=== PATIENT | female | born 1970 ===

== ENCOUNTER 2024-01-12 11:19 | Outpatient (RCR) | payer OTHER, SELFPAY | END 2024-01-12 23:59 | disposition home or self-care (01) | LOC: RPT 11:19 | PROVIDERS: ATTENDING PHYSICIAN Surgery; FAMILY PHYSICIAN Internal Medicine | DX: M62.89 Other specified disorders of muscle (principal); R15.9 Full incontinence of feces; R15.2 Fecal urgency; N39.3 Stress incontinence (female) (male); Z73.6 Limitation of activities due to disability; Z85.048 Personal history of other malignant neoplasm of rectum, rectosigmoid junction, and anus | CPT/HCPCS: 97163; 97530 ==

== ENCOUNTER 2024-02-09 12:00 | Outpatient (RCR) | payer OTHER, SELFPAY | END 2024-02-09 23:59 | disposition home or self-care (01) | LOC: RPT 12:00 | PROVIDERS: ATTENDING PHYSICIAN Surgery; FAMILY PHYSICIAN Internal Medicine | DX: M62.89 Other specified disorders of muscle (principal); R15.9 Full incontinence of feces; R15.2 Fecal urgency; N39.3 Stress incontinence (female) (male); Z73.6 Limitation of activities due to disability; C20 Malignant neoplasm of rectum | CPT/HCPCS: 97112; 97140; 97530 ==

== ENCOUNTER 2024-03-17 13:05 | Outpatient (RCR) | payer OTHER, SELFPAY | END 2024-03-17 23:59 | disposition home or self-care (01) | LOC: RPT 13:05 | PROVIDERS: FAMILY PHYSICIAN Internal Medicine | DX: M62.89 Other specified disorders of muscle (principal); R15.9 Full incontinence of feces; R15.2 Fecal urgency; N39.3 Stress incontinence (female) (male); Z73.6 Limitation of activities due to disability | CPT/HCPCS: 97110; 97140; 97530 ==

== ENCOUNTER 2024-04-19 12:36 | Outpatient (RCR) | payer OTHER, SELFPAY | END 2024-04-19 23:59 | disposition home or self-care (01) | LOC: RPT 12:36 | PROVIDERS: FAMILY PHYSICIAN Internal Medicine | DX: M62.89 Other specified disorders of muscle (principal); R15.9 Full incontinence of feces; R15.2 Fecal urgency; N39.3 Stress incontinence (female) (male); Z73.6 Limitation of activities due to disability | CPT/HCPCS: 97014; 97112; 97140; 97530 ==

== ENCOUNTER 2024-05-17 12:20 | Outpatient (RCR) | payer OTHER, SELFPAY | END 2024-05-17 23:59 | disposition home or self-care (01) | LOC: RPT 12:20 | PROVIDERS: ATTENDING PHYSICIAN Surgery; FAMILY PHYSICIAN Internal Medicine | DX: M62.89 Other specified disorders of muscle (principal) | CPT/HCPCS: 97014; 97112; 97140; 97530 ==

== ENCOUNTER 2024-06-21 12:00 | Outpatient (RCR) | payer OTHER, SELFPAY | END 2024-06-21 23:59 | disposition home or self-care (01) | LOC: RPT 12:00 | PROVIDERS: ATTENDING PHYSICIAN Surgery; FAMILY PHYSICIAN Internal Medicine | DX: M62.89 Other specified disorders of muscle (principal); R15.9 Full incontinence of feces; R15.2 Fecal urgency; N39.3 Stress incontinence (female) (male); Z73.6 Limitation of activities due to disability | CPT/HCPCS: 97014; 97110; 97112; 97140; 97530 ==

== ENCOUNTER 2024-07-12 12:05 | Outpatient (RCR) | payer OTHER, SELFPAY | END 2024-07-12 23:59 | disposition home or self-care (01) | LOC: RPT 12:05 | PROVIDERS: ATTENDING PHYSICIAN Surgery; FAMILY PHYSICIAN Internal Medicine | DX: M62.89 Other specified disorders of muscle (principal); R15.9 Full incontinence of feces; R15.2 Fecal urgency; N39.3 Stress incontinence (female) (male); Z73.6 Limitation of activities due to disability | CPT/HCPCS: 97014; 97110; 97112; 97140; 97530 ==

== ENCOUNTER 2024-08-10 06:33 | Outpatient (RCR) | payer OTHER, SELFPAY | END 2024-08-10 23:59 | disposition home or self-care (01) | LOC: RPT 06:33 | PROVIDERS: ATTENDING PHYSICIAN Surgery; FAMILY PHYSICIAN Internal Medicine | DX: M62.89 Other specified disorders of muscle (principal); R15.9 Full incontinence of feces; R15.2 Fecal urgency; N39.3 Stress incontinence (female) (male); Z73.6 Limitation of activities due to disability | CPT/HCPCS: 97140; 97530 ==

== ENCOUNTER 2024-09-18 16:51 | Outpatient (RCR) | payer BC, SELFPAY | END 2024-09-18 23:59 | disposition home or self-care (01) | LOC: RPT 16:51 | PROVIDERS: ATTENDING PHYSICIAN Surgery; FAMILY PHYSICIAN Internal Medicine | DX: M62.89 Other specified disorders of muscle (principal); R15.9 Full incontinence of feces; R15.2 Fecal urgency; N39.3 Stress incontinence (female) (male); Z73.6 Limitation of activities due to disability; R53.0 Neoplastic (malignant) related fatigue; G62.0 Drug-induced polyneuropathy; C20 Malignant neoplasm of rectum; I97.89 Other postprocedural complications and disorders of the circulatory system, not elsewhere classified | CPT/HCPCS: 97110; 97164; 97530 ==

== ENCOUNTER 2024-10-03 17:52 | Outpatient (RCR) | payer BC, SELFPAY | END 2024-10-03 23:59 | disposition home or self-care (01) | LOC: RPT 17:52 | PROVIDERS: ATTENDING PHYSICIAN Surgery; FAMILY PHYSICIAN Internal Medicine | DX: M62.89 Other specified disorders of muscle (principal); R15.9 Full incontinence of feces; R15.2 Fecal urgency; N39.3 Stress incontinence (female) (male); Z73.6 Limitation of activities due to disability; R53.0 Neoplastic (malignant) related fatigue; G62.0 Drug-induced polyneuropathy; I97.89 Other postprocedural complications and disorders of the circulatory system, not elsewhere classified; Z85.048 Personal history of other malignant neoplasm of rectum, rectosigmoid junction, and anus | CPT/HCPCS: 97112; 97530 ==

== ENCOUNTER 2024-11-07 16:05 | Outpatient (RCR) | payer BC, SELFPAY | END 2024-11-07 23:59 | disposition home or self-care (01) | LOC: RPT 16:05 | PROVIDERS: ATTENDING PHYSICIAN Surgery; FAMILY PHYSICIAN Internal Medicine | DX: M62.89 Other specified disorders of muscle (principal); R15.9 Full incontinence of feces; R15.2 Fecal urgency; N39.3 Stress incontinence (female) (male); Z73.6 Limitation of activities due to disability; R53.0 Neoplastic (malignant) related fatigue; G62.0 Drug-induced polyneuropathy; I97.89 Other postprocedural complications and disorders of the circulatory system, not elsewhere classified; Z85.048 Personal history of other malignant neoplasm of rectum, rectosigmoid junction, and anus | CPT/HCPCS: 97110; 97112; 97530 ==

== ENCOUNTER 2024-12-12 17:11 | Outpatient (RCR) | payer BC, SELFPAY | END 2024-12-12 23:59 | disposition home or self-care (01) | LOC: RPT 17:11 | PROVIDERS: ATTENDING PHYSICIAN Surgery; FAMILY PHYSICIAN Internal Medicine | DX: M62.89 Other specified disorders of muscle (principal); R15.9 Full incontinence of feces; R15.2 Fecal urgency; N39.3 Stress incontinence (female) (male); Z73.6 Limitation of activities due to disability; R53.0 Neoplastic (malignant) related fatigue; G62.0 Drug-induced polyneuropathy; C20 Malignant neoplasm of rectum; I97.89 Other postprocedural complications and disorders of the circulatory system, not elsewhere classified; Z85.048 Personal history of other malignant neoplasm of rectum, rectosigmoid junction, and anus | CPT/HCPCS: 97112; 97530 ==

== ENCOUNTER 2025-01-09 17:01 | Outpatient (RCR) | payer BC, SELFPAY | END 2025-01-09 23:59 | disposition home or self-care (01) | LOC: RPT 17:01 | PROVIDERS: ATTENDING PHYSICIAN Surgery; FAMILY PHYSICIAN Internal Medicine | DX: M62.89 Other specified disorders of muscle (principal); R15.9 Full incontinence of feces; R15.2 Fecal urgency; N39.3 Stress incontinence (female) (male); Z73.6 Limitation of activities due to disability; R53.0 Neoplastic (malignant) related fatigue; C20 Malignant neoplasm of rectum; G62.0 Drug-induced polyneuropathy; I97.89 Other postprocedural complications and disorders of the circulatory system, not elsewhere classified; Z85.048 Personal history of other malignant neoplasm of rectum, rectosigmoid junction, and anus | CPT/HCPCS: 97112; 97140; 97530 ==

== ENCOUNTER 2025-03-13 18:18 | Outpatient (RCR) | payer BC, SELFPAY | END 2025-03-13 23:59 | disposition home or self-care (01) | LOC: RPT 18:18 | PROVIDERS: ATTENDING PHYSICIAN Surgery; FAMILY PHYSICIAN Internal Medicine | DX: M62.89 Other specified disorders of muscle (principal); R15.9 Full incontinence of feces; R15.2 Fecal urgency; N39.3 Stress incontinence (female) (male); Z73.6 Limitation of activities due to disability; R53.0 Neoplastic (malignant) related fatigue; C20 Malignant neoplasm of rectum; G62.0 Drug-induced polyneuropathy; I97.89 Other postprocedural complications and disorders of the circulatory system, not elsewhere classified; Z85.048 Personal history of other malignant neoplasm of rectum, rectosigmoid junction, and anus | CPT/HCPCS: 97110; 97112; 97140; 97530 ==

== ENCOUNTER 2025-04-24 17:23 | Outpatient (RCR) | payer BC, SELFPAY | END 2025-04-24 23:59 | disposition home or self-care (01) | LOC: RPT 17:23 | PROVIDERS: ATTENDING PHYSICIAN Surgery; FAMILY PHYSICIAN Internal Medicine | DX: M62.89 Other specified disorders of muscle (principal); R15.9 Full incontinence of feces; R15.2 Fecal urgency; N39.3 Stress incontinence (female) (male); Z73.6 Limitation of activities due to disability; R53.0 Neoplastic (malignant) related fatigue; C20 Malignant neoplasm of rectum; G62.0 Drug-induced polyneuropathy; I97.89 Other postprocedural complications and disorders of the circulatory system, not elsewhere classified; Z85.048 Personal history of other malignant neoplasm of rectum, rectosigmoid junction, and anus | CPT/HCPCS: 97112; 97140; 97530 ==

== ENCOUNTER 2025-06-12 11:57 | Outpatient (RCR) | payer BC, SELFPAY | END 2025-06-12 23:59 | disposition home or self-care (01) | LOC: RPT 11:57 | PROVIDERS: ATTENDING PHYSICIAN Surgery; FAMILY PHYSICIAN Internal Medicine | DX: M62.89 Other specified disorders of muscle (principal); R15.9 Full incontinence of feces; R15.2 Fecal urgency; N39.3 Stress incontinence (female) (male); Z73.6 Limitation of activities due to disability; R53.0 Neoplastic (malignant) related fatigue; C20 Malignant neoplasm of rectum; G62.0 Drug-induced polyneuropathy; I97.89 Other postprocedural complications and disorders of the circulatory system, not elsewhere classified; Z85.048 Personal history of other malignant neoplasm of rectum, rectosigmoid junction, and anus | CPT/HCPCS: 97110; 97530 ==

== ENCOUNTER 2025-07-11 12:02 | Outpatient (RCR) | payer BC, SELFPAY | END 2025-07-11 23:59 | disposition home or self-care (01) | LOC: RPT 12:02 | PROVIDERS: ATTENDING PHYSICIAN Surgery; FAMILY PHYSICIAN Internal Medicine | DX: M62.89 Other specified disorders of muscle (principal); R15.9 Full incontinence of feces; R15.2 Fecal urgency; N39.3 Stress incontinence (female) (male); Z73.6 Limitation of activities due to disability; R53.0 Neoplastic (malignant) related fatigue; C20 Malignant neoplasm of rectum; G62.0 Drug-induced polyneuropathy; I97.89 Other postprocedural complications and disorders of the circulatory system, not elsewhere classified; Z85.048 Personal history of other malignant neoplasm of rectum, rectosigmoid junction, and anus | CPT/HCPCS: 97110; 97112; 97530 ==

== ENCOUNTER 2025-09-26 16:42 | Outpatient (RCR) | payer BC, SELFPAY | END 2025-09-27 06:54 | disposition home or self-care (01) | LOC: RPT 16:42 | PROVIDERS: ATTENDING PHYSICIAN Surgery; FAMILY PHYSICIAN Internal Medicine | DX: M62.89 Other specified disorders of muscle (principal); R15.9 Full incontinence of feces; R15.2 Fecal urgency; N39.3 Stress incontinence (female) (male); Z73.6 Limitation of activities due to disability; R53.0 Neoplastic (malignant) related fatigue; C20 Malignant neoplasm of rectum; G62.0 Drug-induced polyneuropathy; I97.89 Other postprocedural complications and disorders of the circulatory system, not elsewhere classified; Z85.048 Personal history of other malignant neoplasm of rectum, rectosigmoid junction, and anus | CPT/HCPCS: 97112; 97530 ==